=== PATIENT | male | born 1995 | race African-American/Black ===

== ENCOUNTER 2016-12-21 17:57 | Emergency (ER) | payer SELFPAY ==
[~2016-12-21] VITALS: Ht 188 cm; Wt 88.5 kg
[2016-12-21 18:18] VITALS: BP 131/82
[2016-12-21] MEDS ORDERED: IBUPROFEN 600 MG TAB PO ONE (20:30)
[2016-12-21] MEDS ORDERED: CYCLOBENZAPRINE HCL 10 MG TAB PO ONE (20:30)
== END 2016-12-21 22:52 | disposition home or self-care (01) ==
LOC: ER 17:57
DX: M41.9 Scoliosis, unspecified (principal); G89.29 Other chronic pain
CPT/HCPCS: 72070

== ENCOUNTER → 2018-01-12 | Emergency (ER) | payer SELFPAY ==
[~2018-01-12] VITALS: Ht 188 cm; Wt 90.7 kg
[~2018-01-12] MED LIST: NOREPINEPHRINE 16 MG/500ML KIT 500 ML IV ONE; NOREPINEPHRINE IV ONE
[2018-01-12 22:57] VITALS: BP 110/70
== END | disposition short-term general hospital (02) ==
LOC: ER 22:45
DX: R57.1 Hypovolemic shock (principal)
CPT/HCPCS: 31500; 99291